=== PATIENT | male | born 1960 | race African-American/Black ===

== ENCOUNTER 2017-12-12 11:03 | Emergency (ER) | payer SELFPAY ==
[2017-12-12 11:44] LABS: #Basophils 0.1 thou/uL (0.0-0.2); #Eosinphils 0.2 thou/uL (0.0-0.7); #Lymphocytes 1.5 thou/uL (1.20-3.40); #Neutrophils 5.8 thou/uL (1.40-6.50); %Basophils 0.8 % (0.0-1.0); %Eosinophils 1.9 % (0.0-10.0); %Lymphocytes 17.8 % (21.0-51.0); %Monocytes 11.9 % (0.0-10.0); %Neutrophils 67.7 % (42.0-75.0); Hemoglobin 15.7 g/dL (14.0-18.0); Mean Corpuscular HGB CONC 32.3 g/dL (32.0-36.0); Mean Corpuscular Hemoglobin 33.1 pg (27.0-31.0); Mean Platelet Volume 8.9 fL (7.4-10.4); Platelet Count 95 thou/uL (130-400); RBC Distribution Width 13.3 % (11.5-14.5); Red Blood Cell (RBC) Count 4.73 mill/uL (4.70-6.10); White Blood Cell (WBC) Count 8.6 thou/uL (4.8-10.8)
[2017-12-12 12:08] LABS: ALT (SGPT) 87 U/L (8-55); AST (SGOT) 103 U/L (5-34); Albumin 3.4 g/dL (3.5-5.0); Alkaline Phosphatase 100 U/L (40-150); Anion Gap 11 mmol/L (10-20); BUN (Urea Nitrogen) 13 mg/dL (8.4-25.7); Bilirubin, Total 2.3 mg/dL (0.2-1.2); Calc. Creatinine Clearance 0 mL/min (70-130); Carbon Dioxide 25 mmol/L (22-29); Chloride 100 mmol/L (98-107); Estimated GFR-MDRD 52; Glucose 89 mg/dL (70-105); Potassium 3.4 mmol/L (3.5-5.1); Protein, Total 8.4 g/dL (6.0-8.3); Sodium 133 mmol/L (136-145)
[2017-12-12 16:04] LABS: Bilirubin Small (Negative); Blood, Urine Negative (Negative); Clarity CLOUDY (Clear); Glucose, Urine (Dipstick) 250 mg/dL (Negative); Leukocyte Small (Negative); Nitrite Negative (Negative); Protein, Urine (Dipstick) 30 mg/dL (Neg-Trace); Specific Gravity, Urine 1.019 (1.002-1.036)
[2017-12-12 16:07] LABS: Bacteria/HPF None Seen HPF (None Seen); RBC/HPF 0-3 HPF (0-3); Squamous Epithelial 0-3 HPF (0-3)
[2017-12-12 16:10] LABS: Pathc Cast-AUWi Flag 5.37 (0-2.49)
[2017-12-12 16:21] LABS: Crystals/HPF 1+ CA OXALATE HPF (Negative); Hyaline Casts/LPF NONE SEEN LPF (0-3 Hyaline); Manual Microscopic Reviewed? No Path Casts Seen; Renal Epithelial None Seen HPF (0-3); Transitional Epithelial NONE SEEN HPF (0-3)
== END 2017-12-12 15:21 | disposition home or self-care (01) ==
LOC: ERS 11:03
DX: T67.5XXA Heat exhaustion, unspecified, initial encounter (principal); N17.9 Acute kidney failure, unspecified; I10 Essential (primary) hypertension; F17.210 Nicotine dependence, cigarettes, uncomplicated
CPT/HCPCS: 36415; 80053; 81003; 81015; 82550; 85025; 93005; 96360

== ENCOUNTER 2018-02-17 05:25 | Inpatient (IN) | payer SELFPAY ==
[2018-02-17] MEDS ORDERED: Nitroglycerin 2% Ointment 1 INCH/1 GM Packet ONE (06:02)
[2018-02-17 06:20] LABS: #Eosinphils 0.3 thou/uL (0.0-0.7); #Lymphocytes 1.8 thou/uL (1.20-3.40); #Monocytes 0.6 thou/uL (0.11-0.59); %Basophils 0.1 % (0.0-1.0); %Eosinophils 4.6 % (0.0-10.0); %Lymphocytes 31.8 % (21.0-51.0); %Monocytes 10.2 % (0.0-10.0); %Neutrophils 53.2 % (42.0-75.0)
[2018-02-17 06:21] LABS: ALT (SGPT) 81 U/L (8-55); AST (SGOT) 85 U/L (5-34); Alkaline Phosphatase 85 U/L (40-150); Anion Gap 10 mmol/L (10-20); BUN (Urea Nitrogen) 16 mg/dL (8.4-25.7); Bilirubin, Total 1.9 mg/dL (0.2-1.2); CK (CPK) 302 U/L (30-200); Calc. Creatinine Clearance 0 mL/min (70-130); Calcium 8.6 mg/dL (7.8-10.44); Carbon Dioxide 25 mmol/L (22-29); Chloride 105 mmol/L (98-107); Estimated GFR-MDRD 79; Globulin 4.5 g/dL (2.4-3.5); Glucose 88 mg/dL (70-105); Hemoglobin 13.6 g/dL (14.0-18.0); Lipase 99 U/L (8-78); Mean Corpuscular HGB CONC 32.6 g/dL (32.0-36.0); Mean Corpuscular Hemoglobin 33.2 pg (27.0-31.0); Protein, Total 7.5 g/dL (6.0-8.3); RBC Distribution Width 13.3 % (11.5-14.5); Red Blood Cell (RBC) Count 4.11 mill/uL (4.70-6.10); Sodium 136 mmol/L (136-145); White Blood Cell (WBC) Count 5.6 thou/uL (4.8-10.8)
[2018-02-17 06:26] LABS: Troponin I Less than 0.010 ng/mL (< 0.028)
[2018-02-17 06:31] LABS: CKMB 10.1 ng/mL (0-6.6)
[2018-02-17 06:47] LABS: Mean Platelet Volume 9.3 fL (7.4-10.4); PLT Morphology Comment Appears Decreased; Platelet Count 77 thou/uL (130-400)
--- NOTE | 2018-02-17 07:46 | RAD ---
PORTABLE CHEST 1 VIEW: Date: 02/17/18 Time: 0525 hours HISTORY: Chest pain. FINDINGS: Comparison made with exam of 07/05/16. The heart size is normal. No focal areas of consolidation, pneumothoraces, or pleural effusions are s een. There are postop changes in the lower lumbar spine. IMPRESSION: No acute process. POS: [facility]
--- NOTE | 2018-02-17 08:12 | CT ---
PRELIMINARY REPORT/[facility]/EMERGENTY AFTER-HOURS PROCEDURE CT Angiography Abdomen With Intravenous Contrast EXAM DATE/TIME: 02/17/2018 6:18 AM CLINICAL HISTORY: 57 years old, male; Pain; Chest pain and chest pressure; Left-sided chest pain; Abdominal pain; Gener alized; Additional info: Maile5 presents to ed with C/O sharp left-sided chest pain and tightness onset 3 hours ago, along with r sided arm and leg tingling. PT reports recent lightheadedness while at work, as well as dizziness after getting up. PT reports SOB, n/v. TECHNIQUE: Axial computed tomographic angiography images of the abdomen with intravenous contrast material, incl uding non-contrast images if performed. MIP and/or 3D reconstructed images were created and reviewed. MIP reconstructed images were created and reviewed. CONTRAST: 80 ml of ISOVUE administered intravenously. COMPARISON: No relevant prior studies available. FINDINGS: Lungs: Unremarkable. No consolidation. VASCULATURE: Aorta: The aorta is normal. There is no evidence of aortic dissection, leak, rupture, or other compli cations. The vasculature demonstrates diffuse mild atherosclerotic calcification. Celiac Trunk and Mesenteric Arteries: There is atherosclerotic calcification at the origin of the anuja iac artery resulting in mild stenosis. SMA is patent. With mild atherosclerotic calcification of the origin. LIZETTE is patent. Renal Arteries: No occlusion or significant stenosis. ABDOMEN: Liver: There is a 1.3 cm hyperattenuation within the liver at the hepatic dome, nonspecific and possi miki represents a flash filling hemangioma. Gallbladder and bile ducts: Normal. No calcified stones. No ductal dilation. Pancreas: The pancreas appears normal. Spleen: The spleen is normal. Adrenals: Normal. No mass. Kidneys and ureters: Normal. No hydronephrosis. Stomach and bowel: The stomach is normal. The duodenum is unremarkable. Intraperitoneal space: Unremarkable. No free air. No significant fluid collection. Bones/joints: Unremarkable. No acute fracture. No dislocation. Soft tissues: Unremarkable. Lymph nodes: Unremarkable. No enlarged lymph nodes. IMPRESSION: There is no evidence of aortic dissection, leak, rupture, or other complications. Thank you for allowing us to participate in the care of your patient. Dictated and Authenticated by: Kris Combs MD 02/17/2018 7:05 AM Central Time ([place] & [place]) FINAL REPORT CT ARTERIOGRAM CHEST WITH IV CONTRAST AND 3D MIP IMAGING CT ARTERIOGRAM ABDOMEN WITH IV CONTRAST AND 3D MIP IMAGING: DATE: 02/17/18. TIME: Performed on an emergency basis at 0620 hours. HISTORY: Chest and abdomen pain radiating to back. FINDINGS: Agree with the preliminary report by Dr. Combs from [facility]. No CT evidence of aortic dis section or other acute vascular abnormalities. Small hiatal hernia and vascular anomaly of the liver dome are incidentally noted. POS: [facility]
--- NOTE | 2018-02-17 08:49 | ULT ---
RIGIHT UPPER QUADRANT ULTRASOUND: History: Abdominal pain. FINDINGS: There are multiple mobile gallstones without gallbladder wall thickening or pericholecystic fluid. Th e common duct measures 4 mm in diameter. The right kidney and pancreas are normal. No free fluid is s een in Cartagena's pouch. The liver is normal. IMPRESSION: Cholelithiasis. POS: [facility]
[2018-02-17 09:41] LABS: Troponin I Less than 0.010 ng/mL (< 0.028)
[2018-02-17 10:04] LABS: Acetaminophen Less than 6.0 mcg/mL (10.0-30.0); Alcohol Less than 10 mg/dL (Less than 10); Salicylate Less than 8.0 mg/dL (15.0-30.0)
[2018-02-17] MEDS ORDERED: ISOVUE-370 76%-LOCM 1 ML ONE (10:29)
[2018-02-17] MEDS ORDERED: Ondansetron HCl/PF 4 MG/2 ML Vial IVP PRN ×2 (10:52→12:07)
[2018-02-17] MEDS ORDERED: Ondansetron ODT 4 MG TAB SL PRN (10:52)
[2018-02-17 11:47] VITALS: BMI 28.1
[2018-02-17 11:57] LABS: INR-International Normal Ratio 1.2; PTT 30.4 SEC (22.9-36.1); Prothrombin Time 15.7 SEC (12.0-14.7)
[2018-02-17] MEDS ORDERED: Calcium Carbonate 500 MG ChewTAB PO PRN (12:07)
[2018-02-17] MEDS ORDERED: Ondansetron ODT 4 MG TAB PO PRN (12:07)
[2018-02-17] MEDS ORDERED: Senokot 8.6 MG TAB PO PRN (12:07)
[2018-02-17] MEDS ORDERED: Nitroglycerin 0.4 MG TAB (25 Tab Bottle) PO PRN (12:07)
[2018-02-17] MEDS ORDERED: cloNIDine 0.1 MG TAB PO PRN (12:12)
[2018-02-17 12:14] LABS: Troponin I 0.012 ng/mL (< 0.028)
--- NOTE | 2018-02-17 12:25 | HP ---
PRIMARY CARE PHYSICIAN: Vick stark. CHIEF COMPLAINT: Chest discomfort. HISTORY OF PRESENT ILLNESS: The patient is a 57-year-old male with polysubstance abuse who presented to the emergency room with chest discomfort. In 06/2014 the patient was admitted to this facility for chest discomfort. He had a negative stress test during that admission. A CT scan of the abdomen was negative. A urine drug screen was positive for cocaine. He was evaluated by GI as well as General Surgery at that time. Right upper quadrant ultrasound showed gallbladder distention and sludge in the gallbladder neck. Due to elevated alpha f etoprotein he underwent a CT liver protocol that was also negative for any tumor. He was advised to follow up with GI Clinic as outpatient. The patient woke up around 3:00 a.m. with substernal chest pain that was moderate in intensity, assoc iated with some nausea, shortness of breath and lightheadedness. He had one episode of vomiting the day before yesterday. He has been feeling generally weak and fatigued over the last 2-3 days. He baltazar s been working out in the sun lately. He denies any syncope, palpitations, diarrhea, or heartburn. No recent immobilization or travel reported. In the emergency room, his initial vital signs showed temperature 98.1, respirations 16, pulse rate o f 69 with a blood pressure of 134/70 with O2 saturation 98% on room air. His EKG showed sinus rhythm without significant ST-T wave changes. His troponin was negative; however, his CK-MB was 10.1 with a CK of 302. He received 1 inch nitropatch and 20 mg intramuscular Bentyl. His chest discomfort imp roved after nitroglycerin patch, his heart score in the emergency room was 3. PAST MEDICAL HISTORY: 1. Negative Cardiolite stress test in 2014. 2. Polysubstance abuse. 3. Hypertension, noncompliant with medications. 4. Tobacco dependence. 5. Degenerative disk disease. 6. Cholelithiasis. 7. Chronic hepatitis C. PAST SURGICAL HISTORY: Cervical diskectomy and fusion in 2000. ALLERGIES: No known drug allergies. CURRENT HOME MEDICATIONS: Reviewed with the patient and none. SOCIAL HISTORY: The patient currently lives at home with his family. 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 He con tinues to smoke up to half pack a day. He drinks alcohol socially. He denies any drug use. FAMILY HISTORY: Father at the age of 54 with heart disease. Heart disease also runs in his fam vipin. REVIEW OF SYSTEMS: The following complete review of systems was negative, unless otherwise mentioned in the HPI or below: Constitutional: Weight loss or gain, ability to conduct usual activities. Skin: Rash, itching. Eyes: Double vision, pain. ENT/Mouth: Nose bleeding, neck stiffness, pain, tenderness. Cardiovascular: Palpitations, dyspnea on exertion, orthopnea. Respiratory: Shortness of breath, wheezing, cough, hemoptysis, fever or night sweats. Gastrointestinal: Poor appetite, abdominal pain, heartburn, nausea, vomiting, constipation, or diarrhea. Genitourinary: Urgency, frequency, dysuria, nocturia. Musculoskeletal: Pain, swelling. Neurologic/Psychiatric: Anxiety, depression. Allergy/Immunologic: Skin rash, bleeding tendency. PHYSICAL EXAMINATION: VITAL SIGNS: As discussed above. GENERAL: A 57-year-old male in no apparent distress. Denies any chest discomfort at this time. HEENT: Head atraumatic, normocephalic. Sclerae are anicteric. Moist mucous membrane, no oral lesio n. NECK: Supple, no JVD appreciated. No carotid bruit. LUNGS: Clear to auscultation bilaterally, no wheezing, rales or rhonchi. HEART: S1, S2 present. Regular rate and rhythm. No murmur, rubs, or gallops appreciated. ABDOMEN: Soft, mild epigastric and right upper quadrant tenderness, no rebound, guarding, no costove rtebral angle tenderness. EXTREMITIES: No edema or calf tenderness. NEUROLOGIC: Grossly nonfocal, moves all 4 extremities. PSYCHIATRY: Alert, awake, oriented x3. SKIN: Warm and dry. LYMPH NODES: No palpable lymph nodes in the neck. PERIPHERAL VASCULAR: Radial pulses palpable bilaterally. MUSCULOSKELETAL: No joint swelling or tenderness. LABORATORY FINDINGS: Lipase was 99, total bilirubin 1.9 with AST 85, ALT 81, alkaline phosphatase 85 . BNP 168. CBC showed WBC 5.6 with hemoglobin 13.6, hematocrit 41.9, platelet of 77. PT, INR, PTT pending at this time. EKG by my review as discussed above. Right upper quadrant ultrasound showed cholelithiasis with comm on duct measuring 4 mm. The right kidney and pancreas appeared normal. CT dissection protocol was n egative. There was a 1.3 cm mass in the liver possibly consistent with hemangioma. The pancreas queenie eared normal. There was no evidence of aortic dissection and leak. IMPRESSION: 1. Chest discomfort in a 57-year-old male with polysubstance abuse. His urine drug screen is pendin g at this time. He was also found to have cholelithiasis. Cardiology and Gastroenterology input is pending at this time. He also has abnormal liver function tests. The patient will be started on a c lear liquid diet. He denies any nausea or vomiting at this time. A urine drug screen is pending at this time. We will add low dose aspirin and continue nitropatch. 2. Cholelithiasis. 3. Elevated CK. 4. Abnormal liver function tests, probably secondary to chronic hepatitis C. His HIV RNA in 2014 wa s [id number] IU per mL. 5. Degenerative joint disease. 6. Hypertension, noncompliant with medications. 7. Chronic kidney disease stage 2. 8. Chronic thrombocytopenia of unclear etiology. Plan of care was discussed with the patient in detail. He stated understanding.
[2018-02-17] MEDS: Sodium Chloride 0.9% 1,000 ML IV SCH ×2 (12:44→23:25)
--- NOTE | 2018-02-17 13:32 | CON ---
DATE OF CONSULTATION: 02/17/2018 REFERRING PHYSICIAN: Jim Palomino M.D. HISTORY OF PRESENT ILLNESS: Mr. Leiva is a 57-year-old -[place] man [facility]. The patient complained of recurrent epigastric and substernal chest pain which started approximately 0300 hours. His symptoms appeared suddenly associated with some carlos alberto sea. Pain was rated at 10/10, radiating to his right shoulder and arm. The patient denied any diaph oresis or dyspnea. He reports similar pain pattern over the last 2 months, usually exacerbated by ac tivity and not related to eating. The patient denies any other change in his bowel habits. Last bow el movement was yesterday and normal. He denies any unexplained weight loss. The patient was evalua jean marie in 2014 with similar complaints. At that time, his urinalysis was positive for cocaine abuse. T he patient had normal myocardial perfusion scan. Due to cost of this evaluation in the emergency dep artment, CT scan of the chest was obtained and excluded dissecting aneurysm. At the time of my evalu ation, the patient reports pain to be 4/10 and mostly substernal and epigastric abdominal region into a lesser extent of his right upper quadrant of the abdomen. PAST MEDICAL HISTORY: Pertinent for chronic hepatitis C, essential hypertension for which the patien t has been noncompliant with his medications. Other pertinent past medical history includes degenera tive arthritic disease involving his neck. PAST SURGICAL HISTORY: Pertinent for cervical diskectomy and fusion in 2000. SOCIAL HISTORY: Patient is and lives with a roommate. He admits to smoking 2-4 cigarettes per day and consumes moderate amount of ethanol occasionally. He drinks usually 2-3 beers twice week ly. He denies any other illicit drug abuse. FAMILY HISTORY: Significant for his father who from complications of heart disease in his 60s a nd a grandfather who also from complications of heart disease. The patient reports every male i n his extended family with essential hypertension. He denies any family history of cancer or diabete s mellitus. CURRENT MEDICATIONS: None. ALLERGIES: Patient denies any known drug allergies. REVIEW OF SYSTEMS: A 10-point review of systems essentially unremarkable except for as stated in pas t medical history and chief complaint. PHYSICAL EXAMINATION: GENERAL: This reveals a 57-year-old normally developed man who is otherwise coherent and interactive and appears stated age. The patient is alert and oriented x3. He appears to be in no acute distres s at the time of my evaluation. VITAL SIGNS: Includes blood pressure 144/91, pulse 69, respiratory rate 26, temperature is 98.4 degr ees Fahrenheit and oxygen saturation is 97% on room air. HEENT: Examination reveals normocephalic and atraumatic. Pupils are equal, round, reactive to light and accommodation. Extraocular muscles are intact bilaterally. He has no sclerae icterus present. Oral mucosa is pink and moist. No lesions are noted. NECK: Supple. No palpable lymphadenopathy or thyromegaly present. HEART: Reveals regular rate and rhythm, no murmurs or gallops auscultated. LUNGS: Clear to auscultation bilaterally. Breathing is regular and unlabored. ABDOMEN: Soft with epigastric tenderness to palpation. Liver is palpated 2 cm below the right diehl l margin. The spleen is nonpalpable below costal margin. EXTREMITIES: Reveals 2+ radial and pedal pulses bilaterally. No ankle edema is present. NEUROLOGIC: Examination reveals no focal deficits present. LABORATORY DATA: Pertinent laboratory findings today includes CBC with 5,600 white blood cells, hemo globin and hematocrit 13.6 and 41.9 respectively. Platelet count is 77,000. Metabolic profile; sodi um 136, potassium 4.0, chloride is 105, bicarbonate is 25, BUN 16, creatinine is 1.16, glucose 88, to arvin bilirubin is 1.9, AST and ALT elevated at 85 and 81 respectively. Alkaline phosphatase is normal at 85. IMAGING DATA: I have personally reviewed the abdominal ultrasound, which was obtained today revealin g multiple intraluminal gallstones. There is no gallbladder wall thickening or pericholecystic fluid present. The common bile duct is normal for this patient's age at 4 mm in diameter. IMPRESSION: 1. Epigastric abdominal and substernal chest pain, likely secondary to esophageal spasm versus gastr oesophageal reflux disease. 2. Cholelithiasis with no evidence of acute cholecystitis. Patient's symptomatology especially not associated with foods is unlikely to be a biliary colic. 3. Chronic hepatitis C with associated chronic thrombocytopenia. RECOMMENDATIONS: 1. Cardiology consultation to exclude cardiac etiology of this patient's symptomatology. 2. Once cardiac pathology has been excluded, we will give consideration to laparoscopic cholecystect rena given the likelihood of acute recurrent biliary colic. Above findings and recommendations were discussed with the patient, who indicates understanding of in formation given. Thank you again, Dr. Palomino for allowing me the opportunity to participate in the care of this patient.
[2018-02-17] MEDS: Nitroglycerin 2% Ointment 1 INCH/1 GM Packet TOP SCH ×2 (14:46→22:10)
--- NOTE | 2018-02-17 18:37 | CON ---
DATE OF CONSULTATION: 02/17/2018 REASON FOR CONSULTATION: Preoperative evaluation and chest pain. HISTORY OF PRESENT ILLNESS: Mr. Gray is a 57-year-old -[place] gentleman who comes to [facility] for chest pain. He describes chest pain on the upper left part of his chest that woke him up from sleep and lasted for a while. He decided to come in for evaluation and he was found to have gallstones and abnormal liver function test. Cardiology is being consulted for evaluation of a poss ible cardiac etiology of his symptoms. It is thought that if a cardiac etiology is ruled out, it may be recurrent biliary colic causing his symptoms and he may undergo laparoscopic cholecystectomy. Cu rrently, Mr. Gray is denying any chest pain. No abdominal pain. PAST MEDICAL HISTORY: 1. Chronic hepatitis C. 2. Hypertension. 3. Noncompliance. 4. Degenerative joint disease. PAST SURGICAL HISTORY: Cervical diskectomy and fusion in 2000. OUTPATIENT MEDICATIONS: None. ALLERGIES: No known drug allergies. FAMILY HISTORY: Father of heart disease in his 60s. Grandfather of heart disease as well. SOCIAL HISTORY: , lives with a roommate. Smokes 3-4 cigarettes a day and consumes a moderat e amount of alcohol occasionally, 2-3 beers twice a week. Positive cocaine use, as recent as 1 kelechi h ago. REVIEW OF SYSTEMS: A 12-point review of systems was done and is all negative unless stated in the hi story of present illness. PHYSICAL EXAMINATION: VITAL SIGNS: Temperature 97.3, pulse 56, respiratory rate 19, saturating 98% on room air, blood pres sure 130/76. GENERAL: Awake, alert, oriented x3, in no distress. HEENT: Normocephalic, atraumatic. NECK: Supple. LUNGS: Clear. CARDIOVASCULAR: S1, S2. No S3, S4. No murmur. ABDOMEN: Soft. Positive bowel sounds. EXTREMITIES: No edema. SKIN: Warm and dry. LABORATORY DATA: Laboratory work was reviewed. CBC with a white count of 5.6, hemoglobin of 13.6, h ematocrit of 41.9, platelet count of 77. Coags were unremarkable. Chemistries were unremarkable exc ept for a total bilirubin of 1.9. AST and ALT were high. Alkaline phosphatase was 85, normal. CK w as 302, CK-MB was high at 10.1. Troponin has been negative x3. BNP was 168. Albumin of 3. Lipase was 99, which is chronically high in the past. Toxicology only has salicylate, acetaminophen, and pl asma alcohol, which were all undetectable; however, still awaiting a urine drug screen. CT per dissection protocol shows no evidence of aortic dissection, leak, rupture or other complicatio ns. There is a small hiatal hernia and vascular anomaly of the liver dome, which is an incidental fi nding. Abdominal ultrasound shows gallstones, but no thickening wall or pericholecystic fluid. ASSESSMENT AND PLAN: Chest pain: Clearly different from his pain that would be caused by a possible gallstone issue. His LFTs do suggest this otherwise. We will get an echocardiogram and we will do a stress test to make sure that this is not a cardiac issue. He had similar presentation back in 201 5, at which point, he had a urine drug screen positive for cocaine. I asked him today if he done juan kay, and he tells me the last time he did this was about a month ago and he had pain about a week la ter; and then he got pain again yesterday. Further recommendation per results of echo and stress kate rojo. Thank you for letting us participate in the care of your patient. We will follow.
[2018-02-17] MEDS: Pantoprazole 40 MG VIAL IVP SCH (20:07)
[2018-02-17 20:38] LABS: Amphetamine Not Detected (NotDetected); Barbiturates Screen Not Detected (NotDetected); Benzodiazepine Screen Not Detected (NotDetected); Cocaine Metabolite Screen Detected (NotDetected); Medtox Control Line Valid? VALID (VALID); Medtox Reader # READER 1; Methadone Not Detected (NotDetected); Methamphetamine Not Detected (NotDetected); Opiate Screen Not Detected (NotDetected); Oxycodone Screen Not Detected (NotDetected); Phencyclidine (PCP) Not Detected (NotDetected); THC/Cannabinoid Screen Not Detected (NotDetected); Tricyclic Screen Not Detected (NotDetected)
[2018-02-17] MEDS: Docusate 100 MG CAP PO SCH (20:38)
[2018-02-17] MEDS ORDERED: Famotidine 20 MG TAB PO SCH (21:00)
[2018-02-17] MEDS ORDERED: Acetaminophen 325 MG TAB PO PRN (22:51)
[2018-02-18] MEDS: Nitroglycerin 2% Ointment 1 INCH/1 GM Packet TOP SCH ×3 (05:09→22:08)
[2018-02-18 05:37] LABS: Anion Gap 8 mmol/L (10-20); BUN (Urea Nitrogen) 12 mg/dL (8.4-25.7); Calc. Creatinine Clearance 78 mL/min (70-130); Calcium 8.1 mg/dL (7.8-10.44); Carbon Dioxide 26 mmol/L (22-29); Chloride 105 mmol/L (98-107); Estimated GFR-MDRD 71; Glucose 79 mg/dL (70-105); Lipase 54 U/L (8-78); Potassium 3.9 mmol/L (3.5-5.1); Sodium 135 mmol/L (136-145)
[2018-02-18 05:41] LABS: ALT (SGPT) 73 U/L (8-55); AST (SGOT) 73 U/L (5-34); Albumin 2.7 g/dL (3.5-5.0); Alkaline Phosphatase 75 U/L (40-150); Bilirubin, Direct 1.2 mg/dL (0.1-0.3); Protein, Total 6.5 g/dL (6.0-8.3)
[2018-02-18 05:51] LABS: #Eosinphils 0.2 thou/uL (0.0-0.7); #Lymphocytes 1.5 thou/uL (1.20-3.40); #Monocytes 0.6 thou/uL (0.11-0.59); #Neutrophils 2.6 thou/uL (1.40-6.50); %Basophils 0.6 % (0.0-1.0); %Eosinophils 4.7 % (0.0-10.0); %Lymphocytes 30.3 % (21.0-51.0); %Monocytes 11.9 % (0.0-10.0); %Neutrophils 52.4 % (42.0-75.0); Mean Corpuscular Hemoglobin 33.3 pg (27.0-31.0); Platelet Count 60 thou/uL (130-400); RBC Distribution Width 13.2 % (11.5-14.5); Red Blood Cell (RBC) Count 3.61 mill/uL (4.70-6.10)
[2018-02-18] MEDS: Pantoprazole 40 MG VIAL IVP SCH ×2 (09:15→19:40)
[2018-02-18] MEDS: Docusate 100 MG CAP PO SCH ×2 (09:15→19:46)
[2018-02-18] MEDS: Aspirin 81 mg Enteric Coated Tablet PO SCH (09:17)
[2018-02-18] MEDS ORDERED: ADENOSINE 60 MG/20 ML VIAL ONE (10:21)
[2018-02-18] MEDS ORDERED: Lidocaine 1% PF 5 ML VIAL ONE (13:48)
[2018-02-18] MEDS ORDERED: Ondansetron HCl/PF 4 MG/2 ML Vial ONE (13:48)
[2018-02-18] MEDS ORDERED: PROPOFOL 200 MG/20 ML VIAL ONE (13:48)
[2018-02-18] MEDS ORDERED: Glycopyrrolate 0.2 MG/ML 5 ML SYRINGE ONE (13:48)
--- NOTE | 2018-02-18 14:44 | NM ---
CARDIAC SPECT: HISTORY: A 57-year-old male with chest pain and hypertension. TECHNIQUE: A myocardial perfusion scan was performed using the single isotope one day protocol with technetium 9 9m sestamibi, and 10 millicuries was injected intravenously for the rest exam, followed by 30 millicu del for the stress study. Pharmacologic stress with adenosine was monitored and interpreted by Dr. Salinas. FINDINGS: Homogeneous tracer distribution is seen in the myocardial segments on stress and rest images without fixed or reversible defects. GATED SPECT LVEF: 57% WALL MOTION EXAM: Normal. IMPRESSION: Normal myocardial perfusion scan. POS: [facility]
[2018-02-18] MEDS ORDERED: Bupivacaine/Epinephrine 0.25% 30 ML VIAL ONE (15:50)
[2018-02-18] MEDS: Sodium Chloride 0.9% 1,000 ML IV SCH (16:16)
[2018-02-18] MEDS ORDERED: Fentanyl 250 MCG/5 ML VIAL ONE (16:24)
[2018-02-18] MEDS ORDERED: CEFAZOLIN/Water 2 GM/20 ML SYRINGE ONE (16:25)
--- NOTE | 2018-02-18 16:32 | PDOC.CTH ---
Cardiology Progress Note - Subjective No new issues. - Objective Vital Signs Temp Pulse Resp BP Pulse Ox 02/18/18 08:55 97.9 F 64 18 128/81 96 Weight 190 lb 1 oz 02/17/18 02/18/18 02/19/18 06:59 06:59 06:59 Intake Total 3363 Output Total 900 Balance 2463 - Physical Examination General/Neuro: alert & oriented x3, NAD Neck: no JVD present Lungs: CTA, unlabored respirations Heart: RRR Abdomen: NT/ND Extremities: + edema B (none) - Telemetry Telemetry Rhythm: NSR - Labs Result Diagrams: 02/18/18 04:41 02/18/18 04:41 Troponin/CKMB CK-MB (CK-2) 10.1 ng/mL (0-6.6) H* 02/17/18 05:44 Troponin I 0.012 ng/mL (< 0.028) 02/17/18 11:35 - Assessment/Plan 1, Chest pain 2. Gallstones 3. Substance abuse PLAN: - Likely pain from cocaine use. - Normal stress test and unremarkable echo. - May proceed with surgery as planned. - Counselled on cessation.
--- NOTE | 2018-02-18 17:27 | PRG ---
DATE OF SERVICE: 02/18/2018 GI FOLLOWUP NOTE SUBJECTIVE: Mr. Gray is resting comfortably in bed. He is no longer has any chest pain. He had a stress test that was normal. He had an echocardiogram that was reportedly normal. MEDICATIONS: Tylenol, Protonix, nitroglycerin, clonidine, Senokot, normal saline. OBJECTIVE: VITAL SIGNS: Temperature 97, pulse 64, blood pressure 128/81. LUNGS: Clear. ABDOMEN: Soft and nontender today. LABORATORY STUDIES: White count 5, hemoglobin 12, MCV 104, platelet count 60. INR 1.2. Chemistries notable for alpha fetoprotein of 6.5, AST and ALT are 73 and 73 with a bilirubin of 2. Lipase is 54 . Positive drug screen for cocaine. ASSESSMENT: 1. Hepatitis C, likely has cirrhosis and portal hypertension based on labs and low platelet count. This is compensated at this time. 2. Gallstones. I do not think this is probably the cause of his pain as his pain is resolved now an d typically his pain is not related to eating or activities. I suspect most likely this pain is rela jean marie to ischemic either bowel or cardiac related to cocaine use. There is very similar to his present ation last admission to this admission. RECOMMENDATIONS: Observation, PPI therapy, advance diet as tolerated. If cholecystectomy is to be c onsidered by General Surgery, be aware of the fact there is some risk for hepatic decompensation afte r this with portal hypertension which probably cirrhotic liver from hepatitis C. We would continue P PI therapy for ulcer. Gastritis prophylaxis as this patient is an active cocaine user.
[2018-02-18] MEDS ORDERED: Ondansetron HCl/PF 4 MG/2 ML Vial IVP PRN (18:07)
[2018-02-18] MEDS ORDERED: Promethazine HCl 25 MG/ML VIAL SLOW IVP PRN (18:07)
[2018-02-18] MEDS ORDERED: HYDROmorphone 2 MG/ML VIAL SLOW IVP PRN (18:07)
[2018-02-18] MEDS ORDERED: Promethazine HCl 25 MG/ML VIAL IM PRN (18:07)
--- NOTE | 2018-02-18 18:33 | OP ---
DATE OF OPERATION: 02/18/2018 PREOPERATIVE DIAGNOSES: 1. Acute cholecystitis with cholelithiasis. 2. Chronic hepatitis C. POSTOPERATIVE DIAGNOSES: 1. Acute cholecystitis with cholelithiasis. 2. Chronic hepatitis C. 3. Micronodular liver cirrhosis. PROCEDURES PERFORMED: Laparoscopic cholecystectomy. SURGEON: Vinicio Venegas D.O. ANESTHESIA: General endotracheal. ESTIMATED BLOOD LOSS: 25 mL FLUIDS GIVEN: 1300 mL crystalloids. SPONGE AND INSTRUMENT COUNT: Certified as correct x2. COMPLICATIONS: None apparent at the time of operation. INDICATIONS FOR PROCEDURE: This is a 57-year-old man who presented with recurrent epigastric to righ t upper quadrant abdominal pain. This was associated with severe substernal chest pain. Acute coron nato syndrome was excluded. Clinical and radiographic examination was consistent with acute cholecyst itis with cholelithiasis, for which patient was brought to the operating room for cholecystectomy. F indings are consistent with gallbladder in the usual anatomic location, partially encased by omental adhesions. Also noted micronodularity of the liver suggestive of liver cirrhosis. Photography was debora garcia. DESCRIPTION OF PROCEDURE: Informed consent obtained from the patient who was brought to the operatin g room and placed in supine position. Following general anesthesia, abdomen is sterilely prepped and draped in usual fashion. Skin below the umbilicus was infiltrated with 0.25% Marcaine with epinephr ine. A small curvilinear infraumbilical incision is made using an 11 scalpel. Umbilical stalk was g rasped with Griffin's and elevated. Veress needle was then inserted through the incision and placed i n the peritoneal cavity through which the abdomen was insufflated with 3 liters of CO2 gas. Intraabd ominal pressure noted at 2 mmHg. Following abdominal insufflation, Veress needle was removed and a 5 mm trocar was introduced using the Visiport under laparoscopy. Laparoscopy confirmed proper placeme nt of the port, no injuries to underlying structures. Additional laparoscopy reveals gallbladder in the usual anatomic location partially encased by omental adhesions. Under direct laparoscopy, a 12 m m epigastric and two 5 mm right lateral subcostal ports were placed after the overlying skin were inf iltrated with 0.25% Marcaine with epinephrine and appropriate incisions made. The patient was placed in a reverse Trendelenburg position, rotated to his left. [place] dissector with cautery was intro duced through the epigastric port site using this to take down omental adhesions with good hemostasis . Prestige grasper introduced through the right lateral subcostal port grasping the fundus of the ga llbladder which was elevated. A second Prestige grasper was introduced through the right medial subc ostal port grasping the Valentine's pouch which was retracted laterally. cystic artery was disse cted free from surrounding structures and divided between clips, applying two clips proximally and on e clip at the junction of the cystic artery and gallbladder. The cystic duct was also carefully diss ected free from surrounding structures and divided between clips in a similar fashion. The intrahepa tic gallbladder was then removed from the liver bed using cautery in piecemeal. Gallbladder is deliv ered of the abdominal cavity using an EndoCatch. Operative site was copiously irrigated clear with s breezy. All clips remain in place. The gallbladder fossa was oozing of venous blood. Immediate hemo stasis was achieved using Arixtra. Finding no other pathology, laparoscopy was terminated. Fascia o f the epigastric port was closed using 0 Vicryl suture and Endo closure device under laparoscopy. Ab domen was desufflated. All ports and instruments removed and accounted for. Skin incisions were ameya sed using 4-0 Monocryl suture in subcuticular fashion. Dermabond was applied over incisional closure . The patient tolerated the operation without any apparent complication and was returned to recovery room in a satisfactory condition.
[2018-02-18] MEDS ORDERED: traMADol HCl 50 MG TAB PO PRN (18:44)
[2018-02-18] MEDS ORDERED: HYDROmorphone 2 MG/ML VIAL ONE (18:51)
[2018-02-18] MEDS: traMADol HCl 50 MG TAB PO PRN (19:44)
--- NOTE | 2018-02-18 22:48 | PDOC.PN ---
- Subjective Encounter Start Date: 02/18/18 Encounter Start Time: 10:30 Patient seen and examined for CP. No new complaints. Denies any new CP. No fever /chills/N/V. No overnight events - Objective Resuscitation Status: Resuscitation Status FULL:Full Resuscitation MAR Reviewed: Yes Vital Signs & Weight: Vital Signs (12 hours) Temp Pulse Resp BP Pulse Ox 02/18/18 21:45 100 02/18/18 19:27 97.5 F L 78 18 144/71 H 100 Weight Weight 190 lb 1 oz I&O: 02/17/18 02/18/18 02/19/18 06:59 06:59 06:59 Intake Total 3363 Output Total 900 1200 Balance 2463 -1200 Result Diagrams: 02/19/18 05:31 02/19/18 05:31 EKG Reviewed by me: Yes (Tele SR) Phys Exam - Physical Examination Constitutional: NAD Neck: no JVD, supple Respiratory: no wheezing, no rales, no rhonchi, clear to auscultation bilateral Cardiovascular: RRR, no rub no heaves/pulsations Gastrointestinal: soft, non-tender, no distention, positive bowel sounds Musculoskeletal: no edema Neurological: non-focal, moves all 4 limbs Psychiatric: normal affect, A&O x 3 Dx/Plan - Plan DVT proph w/SCDs IMPRESSION: 1. Chest pain. 2. Cholelithiasis. 3. Elevated CK. 4. Abnormal liver function tests, probably secondary to chronic hepatitis C. 5. Degenerative joint disease. 6. Hypertension, noncompliant with medications. 7. Chronic kidney disease stage 2. 8. Chronic thrombocytopenia prob due to underlying cirrhosis. 9 Cocaine abuse PLAN: Stress test today Echo reviewed Possible Lap Lyndsey today Cont PPI Counselled to quit Cocaine Cont current meds as below Review of Systems - Review of Systems Cardiovascular: negative: chest pain, palpitations, orthopnea, paroxysmal nocturnal dyspnea, edema, light headedness, other Gastrointestinal: negative: Nausea, Vomiting, Abdominal Pain, Diarrhea, Constipation, Melena, Hematochezia, Other - Medications/Allergies Allergies/Adverse Reactions: Allergies Allergy/AdvReac Type Severity Reaction Status Date / Time Fish Containing Products Allergy Verified 07/15/14 01:36 No Known Drug Allergies Allergy Verified 07/15/14 01:16 Medications: Current Medications Aspirin (Ecotrin) 81 mg PO DAILY [facility] Last Admin: 02/18/18 09:17 Dose: Not Given Calcium Carbonate (Tums) 1,000 mg PO Q4H PRN PRN Reason: Heartburn or Indigestion Clonidine (Catapres) 0.1 mg PO Q4H PRN PRN Reason: Systolic BP > 180 Docusate Sodium (Colace) 100 mg PO BID [facility] Last Admin: 02/18/18 19:46 Dose: Not Given Sodium Chloride (Normal Saline 0.9%) 1,000 mls @ 75 mls/hr IV .[id number] [facility] Stop: 02/19/18 12:16 Last Admin: 02/18/18 16:16 Dose: Not Given Ketorolac Tromethamine (Toradol) 15 mg IVP Q6HR [facility] Stop: 02/23/18 23:59 Nitroglycerin (Nitro-Bid 2% Ointment) 0.5 inch TOP Q8HR [facility] Last Admin: 02/18/18 22:08 Dose: Not Given Nitroglycerin (Nitrostat) 0.4 mg PO Q5MIN PRN PRN Reason: Chest Pain Ondansetron HCl (Zofran Odt) 4 mg PO Q6H PRN PRN Reason: Nausea/Vomiting Ondansetron HCl (Zofran) 4 mg IVP Q6H PRN PRN Reason: Nausea/Vomiting Pantoprazole Sodium (Protonix) 40 mg IVP Q12HR [facility] Last Admin: 02/18/18 19:40 Dose: 40 mg Senna (Senokot) 2 tab PO HSPRN PRN PRN Reason: Constipation Tramadol HCl (Ultram) 50 mg PO Q6H PRN PRN Reason: Moderate Pain (4-6) Tramadol HCl (Ultram) 100 mg PO Q6H PRN PRN Reason: Severe Pain (7-10) Last Admin: 02/18/18 19:44 Dose: 100 mg
[2018-02-18] MEDS: Ketorolac Tromethamine 30 MG/ML VIAL IVP SCH (23:11)
[2018-02-19] MEDS: Sodium Chloride 0.9% 1,000 ML IV SCH (01:05)
[2018-02-19] MEDS: traMADol HCl 50 MG TAB PO PRN ×4 (01:42→20:31)
[2018-02-19] MEDS: Ketorolac Tromethamine 30 MG/ML VIAL IVP SCH ×3 (05:20→18:03)
[2018-02-19] MEDS: Nitroglycerin 2% Ointment 1 INCH/1 GM Packet TOP SCH (05:21)
[2018-02-19 05:55] LABS: #Eosinphils 0.3 thou/uL (0.0-0.7); #Lymphocytes 1.1 thou/uL (1.20-3.40); #Monocytes 0.6 thou/uL (0.11-0.59); #Neutrophils 5.2 thou/uL (1.40-6.50); %Basophils 0.5 % (0.0-1.0); %Eosinophils 3.9 % (0.0-10.0); %Lymphocytes 15.3 % (21.0-51.0); %Monocytes 8.8 % (0.0-10.0); %Neutrophils 71.5 % (42.0-75.0); Hemoglobin 12.3 g/dL (14.0-18.0); Mean Corpuscular HGB CONC 32.4 g/dL (32.0-36.0); Mean Corpuscular Hemoglobin 33.5 pg (27.0-31.0); Mean Platelet Volume 8.7 fL (7.4-10.4); Platelet Count 65 thou/uL (130-400); Red Blood Cell (RBC) Count 3.66 mill/uL (4.70-6.10); White Blood Cell (WBC) Count 7.3 thou/uL (4.8-10.8)
[2018-02-19 06:15] LABS: ALT (SGPT) 71 U/L (8-55); AST (SGOT) 77 U/L (5-34); Albumin 2.7 g/dL (3.5-5.0); Alkaline Phosphatase 78 U/L (40-150); Anion Gap 8 mmol/L (10-20); BUN (Urea Nitrogen) 11 mg/dL (8.4-25.7); Bilirubin, Direct 0.9 mg/dL (0.1-0.3); Bilirubin, Total 1.5 mg/dL (0.2-1.2); Calc. Creatinine Clearance 93 mL/min (70-130); Calcium 8.2 mg/dL (7.8-10.44); Carbon Dioxide 23 mmol/L (22-29); Chloride 106 mmol/L (98-107); Estimated GFR-MDRD 84; Glucose 116 mg/dL (70-105); Potassium 3.9 mmol/L (3.5-5.1); Protein, Total 6.7 g/dL (6.0-8.3); Sodium 133 mmol/L (136-145)
[2018-02-19] MEDS: Docusate 100 MG CAP PO SCH (08:46)
[2018-02-19] MEDS: Pantoprazole 40 MG VIAL IVP SCH (08:46)
[2018-02-19] MEDS: Aspirin 81 mg Enteric Coated Tablet PO SCH (08:46)
--- NOTE | 2018-02-19 11:55 | PDOC.PN ---
- Subjective Encounter Start Date: 02/19/18 Encounter Start Time: 10:45 Patient seen and examined for CP. No new complaints. Tolerating PO. Some pain over the surgical site - improving. No overnight events - Objective Resuscitation Status: Resuscitation Status FULL:Full Resuscitation MAR Reviewed: Yes Vital Signs & Weight: Vital Signs (12 hours) Temp Pulse Resp BP Pulse Ox 02/19/18 08:25 95 02/19/18 07:30 98.6 F 71 18 143/80 H 95 02/19/18 06:10 98 02/19/18 04:34 98.2 F 73 18 151/89 H 96 02/19/18 00:28 97.8 F 83 18 159/86 H 99 Weight Weight 190 lb 1 oz I&O: 02/18/18 02/19/18 02/20/18 06:59 06:59 06:59 Intake Total 3363 1500 Output Total 900 2050 Balance 2463 -550 Result Diagrams: 02/19/18 05:31 02/19/18 05:31 Phys Exam - Physical Examination Constitutional: NAD Respiratory: no wheezing, no rhonchi Cardiovascular: RRR, no rub Gastrointestinal: soft, positive bowel sounds Musculoskeletal: no edema Neurological: moves all 4 limbs Dx/Plan - Plan DVT proph w/SCDs IMPRESSION: 1. Chest pain. ACS ruled out. Stress test neg 2. Symptomatic cholelithiasis s/p Lap Lyndsey 02/18 3. Elevated CK. 4. Abnormal liver function tests, probably secondary to chronic hepatitis C. 5. Degenerative joint disease. 6. Hypertension, noncompliant with medications. 7. Chronic kidney disease stage 2. 8. Chronic thrombocytopenia prob due to underlying cirrhosis. 9 Cocaine abuse. 10. Urinary retention. PLAN: Cont current meds as below Cont PPI - change to PO Ambulate Counselled to quit Cocaine DC NTG patch Add Amlodipine Cont Clonidine PRN DC IVF if tolerating PO Review of Systems - Review of Systems Respiratory: negative: Cough, Dry, Shortness of Breath, Hemoptysis, SOB with Excertion, Pleuritic Pain, Sputum, Wheezing Cardiovascular: negative: chest pain, palpitations, orthopnea, paroxysmal nocturnal dyspnea, edema, light headedness, other - Medications/Allergies Allergies/Adverse Reactions: Allergies Allergy/AdvReac Type Severity Reaction Status Date / Time Fish Containing Products Allergy Verified 07/15/14 01:36 No Known Drug Allergies Allergy Verified 07/15/14 01:16 Medications: Current Medications Aspirin (Ecotrin) 81 mg PO DAILY [facility] Last Admin: 02/19/18 08:46 Dose: 81 mg Calcium Carbonate (Tums) 1,000 mg PO Q4H PRN PRN Reason: Heartburn or Indigestion Clonidine (Catapres) 0.1 mg PO Q4H PRN PRN Reason: Systolic BP > 180 Docusate Sodium (Colace) 100 mg PO BID [facility] Last Admin: 02/19/18 08:46 Dose: 100 mg Sodium Chloride (Normal Saline 0.9%) 1,000 mls @ 75 mls/hr IV .[id number] [facility] Stop: 02/19/18 12:16 Last Admin: 02/19/18 01:05 Dose: 1,000 mls Ketorolac Tromethamine (Toradol) 15 mg IVP Q6HR [facility] Stop: 02/23/18 23:59 Last Admin: 02/19/18 11:38 Dose: 15 mg Nitroglycerin (Nitro-Bid 2% Ointment) 0.5 inch TOP Q8HR [facility] Last Admin: 02/19/18 05:21 Dose: 0.5 inch Nitroglycerin (Nitrostat) 0.4 mg PO Q5MIN PRN PRN Reason: Chest Pain Ondansetron HCl (Zofran Odt) 4 mg PO Q6H PRN PRN Reason: Nausea/Vomiting Ondansetron HCl (Zofran) 4 mg IVP Q6H PRN PRN Reason: Nausea/Vomiting Pantoprazole Sodium (Protonix) 40 mg IVP Q12HR [facility] Last Admin: 02/19/18 08:46 Dose: 40 mg Senna (Senokot) 2 tab PO HSPRN PRN PRN Reason: Constipation Tramadol HCl (Ultram) 50 mg PO Q6H PRN PRN Reason: Moderate Pain (4-6) Tramadol HCl (Ultram) 100 mg PO Q6H PRN PRN Reason: Severe Pain (7-10) Last Admin: 02/19/18 08:45 Dose: 100 mg
[2018-02-19] MEDS ORDERED: Amlodipine 5 MG TAB PO SCH (12:00)
--- NOTE | 2018-02-19 16:31 | PRG ---
DATE OF SERVICE: 02/19/2018 SUBJECTIVE: The patient is postop day 1 status post laparoscopic cholecystectomy. The patient under went this procedure yesterday without difficulty. Overnight, he has not had any issues and he report s his pain is controlled and he is tolerating a diet. PHYSICAL EXAMINATION: VITAL SIGNS: Temperature is 98.6, heart rate is 71, blood pressure 143/80, respirations 18, oxygen s aturation 95% on room air. GENERAL: The patient is resting comfortably in bed. He is awake, alert and oriented x3. LUNGS: Clear to auscultation bilaterally. HEART: Regular rate and rhythm. ABDOMEN: Soft, flat, nontender. Port sites are clean, dry and intact. LABORATORY DATA: White blood cell count 7.3, hemoglobin 12.3, hematocrit 37.8, platelets 65,000. So dium 133, potassium 3.9, chloride 106, CO2 23, BUN 11, creatinine 1.10, glucose 116, total bilirubin down to 1.5, direct bilirubin down to 0.9, AST 77, ALT 71, alkaline phosphatase 78. There are no rad iographs to review this morning. ASSESSMENT: 1. Status post laparoscopic cholecystectomy. 2. Chronic hepatitis C. 3. Nodular liver cirrhosis. PLAN: Will be to continue supportive care. The patient will also have a GI consult and continued me dical management by the primary team.
[2018-02-19] MEDS: Amlodipine 5 MG TAB PO SCH (20:21)
[2018-02-19] MEDS: Senokot S 8.6-50 MG TAB PO SCH (20:21)
[2018-02-19] MEDS: Tamsulosin HCl 0.4 MG CAP PO SCH (20:21)
--- NOTE | 2018-02-19 20:51 | PRG ---
DATE OF SERVICE: 02/19/2018 SUBJECTIVE: The patient notes he has been up and out of bed. He has a little bit of upper abdominal pain similar to before his surgery, which is really unchanged. He is eating. He has no nausea or v omiting. He has no fever. MEDICATIONS: Amlodipine, Toradol, nitroglycerin, Zofran, Protonix, Senokot, Ultram. PHYSICAL EXAMINATION: VITAL SIGNS: Temperature is 97, pulse 86, blood pressure 155/89. GENERAL: He is alert and oriented. ABDOMEN: Nontender. LABORATORY STUDIES: White count 7.3, hemoglobin is 12.3, platelet count is 65,000. Sodium 133, pota ssium 3.9, BUN and creatinine are 11 and 1.1, bilirubin 1.5, AST and ALT are 77 and 71, alkaline phos phatase 78, AFP in 2014. ASSESSMENT: 1. Status post cholecystectomy. 2. Recurrent bouts of vague abdominal pain, possibly the gallbladder, possibly related to recurrent positive drug screens for cocaine. 3. Cirrhosis secondary to hepatitis C. 4. Ongoing hepatitis C infection. RECOMMENDATIONS: After the patient recovers from surgery, we would be happy to see him in the office as we offered to him in the past, to follow up for hepatitis C treatment. We will give him office andrew garcia and I would be happy to see him back in a few weeks after his surgery if you would like to purs ue therapy.
[2018-02-20] MEDS: Ketorolac Tromethamine 30 MG/ML VIAL IVP SCH ×5 (00:06→23:27)
[2018-02-20] MEDS: traMADol HCl 50 MG TAB PO PRN ×2 (05:18→17:15)
--- NOTE | 2018-02-20 07:14 | CON ---
DATE OF CONSULTATION: 02/17/2018 REASON FOR CONSULTATION: Abdominal pain, chest pain. HISTORY OF PRESENT ILLNESS: Mr. Gray is a 57-year-old gentleman who came to the emergency room l ast night about 3:00 in the morning for which he reports there is very sharp pain in the epigastrium and chest. This has been going on for about 2-3 months. He states that typically the pain is like c hest tightness like someone sitting on his chest. At this time, it was sharp in the left chest and l eft upper abdomen. He reports he had to leave work on this past Tuesday because he was lightheaded and dizzy when he got up. He has some shortness of breath and some nausea and vomiting when he came in last night, but denies either of these now. Right now, he states his whole upper belly just is u ncomfortable, feels tight. He denies any relationship of the symptoms to working or activity. He de nies relation of symptoms to eating. He notes no relations to lying flat. He says he thought maybe it was indigestion in the past few months, but really had not taken any over the counter medicines fo r it. He denies any nausea or vomiting, although the ER notes that he has had associated vomiting wi th . REVIEW OF SYSTEMS: Pertinent review of systems negative for weight loss, dysphagia, odynophagia, melo natanael, hematochezia or hematemesis, fever or chills. Denies any radiation of pain to the back. In the past, the patient was here with similar symptoms about a year ago and positive drug screen for cocaine. He states he does not do cocaine or any drugs at this time. He does drink alcohol about 6 beers a week. He states he last drank on of last week. On presentation to the emergency r oom, he had stable vital signs and benign exam. He was given some Benadryl and some Nitro-Bid ointme nt and some aspirin. Negative CT scan of the chest, abdomen, and pelvis, showed some gallstones, nor mal bile duct. LABORATORY AND X-RAY FINDINGS: His labs are notable for a white count of 5.6, hemoglobin 13.6 and a platelet count of 77,000. INR is 1.2. His bilirubin is 1.9 with AST and ALT of 85 and 81, alkaline phosphatase of 85, creatine kinase of 302, CK-MB of 10. Troponins are less than 0.01. Protein 7.5, albumin 3, lipase was 99. Previous labs are notable for although AFP of 52 last year. Presently, the patient in no overt distress. He is lying in bed, has got no IV fluids going or new m edications going that I can tell PAST MEDICAL HISTORY: Hypertension; tobacco abuse; drug use in the past, he denies this now; history of cervical disk disease, history of hepatitis C. PAST SURGICAL HISTORY: Several diskectomy in 2000, bilateral knee surgery. MEDICATIONS: None at home. ALLERGIES: FISH, but not SHELLFISH. FAMILY HISTORY: Heart disease. 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 Smokes half a pack a day. Drinks about 6 beers per day. He state s he is not using drugs now. REVIEW OF SYSTEMS: As per HPI, otherwise negative for shortness of breath, fever or chills. PRESENT MEDICATIONS: Ecotrin, Tums, Catapres, Colace, Pepcid, Nitrostat, Zofran, Senna, normal salin e at 75 an hour. IMAGING: CT dissection protocol of abdomen, 1.3 cm hypertonic liver lesion in the dome, atherosclero tic vessel disease in the celiac, otherwise normal CT. Chest x-ray was normal. Ultrasound, cholelit hiasis. Hepatitis C antibody positive last in 2014 with hepatitis C RNA positive at that time as wel l. On 02/17/2018, plasma alcohol was negative. Acetaminophen negative. Salicylates negative. Urin e drug screen was not done. Urine showed small bilirubin and leukocytes. ASSESSMENT: 1. Atypical chest pain, and epigastric pain ongoing for several months, worse in the past couple of days. CAT scan shows no acute abnormalities. Ultrasound showed some gallstones. His pain is not ty pical of biliary colic and it is all over the chest did not really , last night it woke him up f rom sleep. He has got some laboratory findings of elevated CK and CK-MB, one wonders about a rhabdom yolysis. I am very concerned about ongoing drug use. Differential diagnoses include mild ischemia r elated to drug use, reflux, dehydration, and last on my list would be atypical biliary colic. 2. Hepatitis C. His abnormal liver function tests have been present since 2014. He does have a sma ll lesion in his liver, which is flash filling. We will ask Radiology if this was present on his pre vious CAT scan in 2015. We would repeat his alpha fetoprotein as well with regard to this lesion. In itially we would go ahead and put him on a PPI instead of an H2 radha. We will await for Cardiac a nd Surgery evaluation.
[2018-02-20 07:32] LABS: ALT (SGPT) 75 U/L (8-55); AST (SGOT) 86 U/L (5-34); Albumin 2.8 g/dL (3.5-5.0); Alkaline Phosphatase 85 U/L (40-150); Anion Gap 8 mmol/L (10-20); BUN (Urea Nitrogen) 14 mg/dL (8.4-25.7); Bilirubin, Direct 0.7 mg/dL (0.1-0.3); Calc. Creatinine Clearance 87 mL/min (70-130); Carbon Dioxide 25 mmol/L (22-29); Chloride 104 mmol/L (98-107); Estimated GFR-MDRD 78; Glucose 97 mg/dL (70-105); Potassium 3.9 mmol/L (3.5-5.1); Sodium 133 mmol/L (136-145)
[2018-02-20] MEDS: Amlodipine 5 MG TAB PO SCH ×2 (08:25→20:00)
[2018-02-20] MEDS: Aspirin 81 mg Enteric Coated Tablet PO SCH (08:25)
[2018-02-20] MEDS: Senokot S 8.6-50 MG TAB PO SCH ×2 (08:25→19:59)
--- NOTE | 2018-02-20 15:58 | PDOC.PN ---
- Subjective Encounter Start Date: 02/20/18 Encounter Start Time: 10:15 Patient seen and examined for CP. Some abd pain over the surgical site. No N/V. No new complaints. No overnight events - Objective Resuscitation Status: Resuscitation Status FULL:Full Resuscitation MAR Reviewed: Yes Vital Signs & Weight: Vital Signs (12 hours) Temp Pulse Resp BP Pulse Ox 02/20/18 15:26 98.0 F 72 16 157/95 H 98 02/20/18 11:52 98.1 F 69 16 159/91 H 97 02/20/18 08:00 97.7 F 74 16 132/85 96 02/20/18 04:00 98.2 F 70 20 162/87 H 97 Weight Weight 190 lb 1 oz I&O: 02/19/18 02/20/18 02/21/18 06:59 06:59 06:59 Intake Total 1500 2580 Output Total 2050 1015 Balance -550 1565 Result Diagrams: 02/19/18 05:31 02/20/18 06:51 Phys Exam - Physical Examination Constitutional: NAD Respiratory: no wheezing, no rhonchi Cardiovascular: RRR, no rub Gastrointestinal: soft, positive bowel sounds Musculoskeletal: no edema Neurological: moves all 4 limbs Dx/Plan - Plan DVT proph w/SCDs IMPRESSION: 1. Chest pain. ACS ruled out. Stress test neg 2. Symptomatic cholelithiasis s/p Lap Lyndsey 02/18 3. Elevated CK. 4. Abnormal liver function tests, probably secondary to chronic hepatitis C. 5. Degenerative joint disease. 6. Hypertension, noncompliant with medications. 7. Chronic kidney disease stage 2. 8. Chronic thrombocytopenia prob due to underlying cirrhosis. 9 Cocaine abuse - Counselled 10. Urinary retention. PLAN: Cont current meds as below Cont PPI Cont Amlodipine Ambulate GI signed off DC home in AM if stable Cont Clonidine PRN DC ASA Laboratory Tests 02/18/18 02/19/18 02/20/18 04:41 05:31 06:51 Total Bilirubin 2.0 H 1.5 H 1.0 Review of Systems - Review of Systems Respiratory: negative: Cough, Dry, Shortness of Breath, Hemoptysis, SOB with Excertion, Pleuritic Pain, Sputum, Wheezing Cardiovascular: negative: chest pain, palpitations, orthopnea, paroxysmal nocturnal dyspnea, edema, light headedness, other - Medications/Allergies Allergies/Adverse Reactions: Allergies Allergy/AdvReac Type Severity Reaction Status Date / Time Fish Containing Products Allergy Verified 07/15/14 01:36 No Known Drug Allergies Allergy Verified 07/15/14 01:16 Medications: Current Medications Amlodipine Besylate (Norvasc) 5 mg PO BID [facility] Last Admin: 02/20/18 08:25 Dose: 5 mg Aspirin (Ecotrin) 81 mg PO DAILY [facility] Last Admin: 02/20/18 08:25 Dose: 81 mg Calcium Carbonate (Tums) 1,000 mg PO Q4H PRN PRN Reason: Heartburn or Indigestion Clonidine (Catapres) 0.1 mg PO Q4H PRN PRN Reason: Systolic BP > 180 Last Admin: 02/19/18 16:03 Dose: 0.1 mg Ketorolac Tromethamine (Toradol) 15 mg IVP Q6HR [facility] Stop: 02/23/18 23:59 Last Admin: 02/20/18 12:15 Dose: 15 mg Nitroglycerin (Nitrostat) 0.4 mg PO Q5MIN PRN PRN Reason: Chest Pain Ondansetron HCl (Zofran Odt) 4 mg PO Q6H PRN PRN Reason: Nausea/Vomiting Ondansetron HCl (Zofran) 4 mg IVP Q6H PRN PRN Reason: Nausea/Vomiting Pantoprazole Sodium (Protonix) 40 mg PO DAILY [facility] Last Admin: 02/20/18 08:25 Dose: 40 mg Senna (Senokot) 2 tab PO HSPRN PRN PRN Reason: Constipation Senna/Docusate Sodium (Senokot S) 2 tab PO BID [facility] Last Admin: 02/20/18 08:25 Dose: 2 tab Tamsulosin HCl (Flomax) 0.4 mg PO HS [facility] Last Admin: 02/19/18 20:21 Dose: 0.4 mg Tramadol HCl (Ultram) 50 mg PO Q6H PRN PRN Reason: Moderate Pain (4-6) Tramadol HCl (Ultram) 100 mg PO Q6H PRN PRN Reason: Severe Pain (7-10) Last Admin: 02/20/18 05:18 Dose: 100 mg
[2018-02-20] MEDS: Tamsulosin HCl 0.4 MG CAP PO SCH (19:59)
--- NOTE | 2018-02-20 20:40 | PRG ---
DATE OF SERVICE: 02/20/2018 SUBJECTIVE: Abbie Gray is doing well today. He is tolerating his diet. He is having some d iscomfort postoperatively as expected. OBJECTIVE: LUNGS: Clear to auscultation. CARDIAC: Regular rate and rhythm without murmur or gallop. ABDOMEN: Soft, nontender, good bowel sounds. Surgical wounds, laparoscopic, look good. He has pass ed flatus. LABORATORY DATA: His bilirubin is down to normal. ASSESSMENT AND PLAN: 1. Cirrhosis. 2. Status post laparoscopic cholecystectomy. The patient can be discharged home anytime from a surgical standpoint. Follow up [facility] in 2 weeks.
[2018-02-21] MEDS: Ketorolac Tromethamine 30 MG/ML VIAL IVP SCH ×2 (05:21→11:25)
[2018-02-21] MEDS: Senokot S 8.6-50 MG TAB PO SCH (07:53)
[2018-02-21] MEDS: Amlodipine 5 MG TAB PO SCH (07:54)
[2018-02-21 07:55] VITALS: BP 131/86
[2018-02-21 08:49] VITALS: TEMP 98.7
[2018-02-21] MEDS ORDERED: Milk Of Magnesia 30 ML UDCUP PO SCH (11:15)
[2018-02-21] MEDS ORDERED: Polyethylene Glycol 3350 17 GM Packet PO SCH (11:15)
--- NOTE | 2018-02-21 11:25 | DIS ---
DATE OF ADMISSION: 02/17/2018 DATE OF DISCHARGE: 02/21/2018 DISCHARGE DISPOSITION: Home. FOLLOWUP: 1. Follow up with primary care physician at [facility] in 1 week. 2. Follow up with General Surgery, Dr. Venegas as scheduled. DISCHARGE MEDICATIONS: Amlodipine 5 mg b.i.d., Colace 100 mg twice a day, Protonix 40 mg daily, tram adol as needed. The patient was seen and examined on the day of discharge, denies any new complaints, no chest pain, shortness of breath, palpitations reported. BRIEF HOSPITAL COURSE: Patient is a 57-year-old male with polysubstance abuse, hypertension, tobacco dependence, cholelithiasis, and medication noncompliance who presented to the emergency room with ch est discomfort. Please refer to the history and physical for further details. The patient was admitted to the hospital with a diagnosis of chest discomfort, rule out acute coronar y syndrome. Urine drug screen was positive for cocaine. He was found to have abnormal LFTs. Right upper quadrant ultrasound in the emergency room showed cholelithiasis without pericholecystic fluid o r gallbladder wall thickening. The patient was seen by General Surgery in the emergency room. He wa s also evaluated by Cardiology and Gastroenterology after admission. He underwent a laparoscopic cho lecystectomy on 02/18/2018. He tolerated the procedure well. Prior to surgery, he was cleared by Ca rdiology with a negative stress test. His echocardiogram showed left ventricular ejection fraction o f 60%-65% with diastolic dysfunction, mild concentric left ventricular hypertrophy. There was also a large calcified mass on the left coronary cusp suggestive of healed vegetation. Lifestyle modificat ion was emphasized. His LFTs have improved. His total bilirubin on admission was 2.0 and yesterday was 1.0. He was also found to have elevated alpha fetoprotein at 55.9. He was advised to follow up with gastroenterology clinic as outpatient. FINAL DIAGNOSES: 1. Chest discomfort, acute coronary syndrome ruled out. 2. Negative Cardiolite stress test. 3. Hypertension with hypertensive heart disease. 4. Symptomatic cholelithiasis status post laparoscopic cholecystectomy. 5. Elevated CK on admission. 6. Abnormal liver function tests, multifactorial. 7. Chronic hepatitis C. 8. Degenerative joint disease. 9. Chronic kidney disease stage 2. 10. Chronic thrombocytopenia, probably secondary to underlying cirrhosis. 11. Cocaine abuse. 12. Urinary retention, resolved. Plan of care was discussed with the patient in detail. He stated understanding. Total time coordinating the discharge of this patient was 36 minutes.
== END 2018-02-21 15:29 | disposition home or self-care (01) | DRG 419 ==
LOC: ERS 05:25 → 2NO 10:41 → SURG A 02-18 19:18
PROVIDERS: ADMIT Internal Medicine; ATTEND Internal Medicine
PROC: 0FT44ZZ Resection of Gallbladder, Percutaneous Endoscopic Approach (ICD-10-PCS; principal; 2018-02-17)
DX: K80.00 Calculus of gallbladder with acute cholecystitis without obstruction (principal); F14.10 Cocaine abuse, uncomplicated; Z91.19 Patient's noncompliance with other medical treatment and regimen; F17.210 Nicotine dependence, cigarettes, uncomplicated; K73.9 Chronic hepatitis, unspecified; Z98.1 Arthrodesis status; F32.9 Major depressive disorder, single episode, unspecified; F41.9 Anxiety disorder, unspecified; M19.90 Unspecified osteoarthritis, unspecified site; I12.9 Hypertensive chronic kidney disease with stage 1 through stage 4 chronic kidney disease, or unspecified chronic kidney disease; N18.2 Chronic kidney disease, stage 2 (mild); D69.6 Thrombocytopenia, unspecified; I13.10 Hypertensive heart and chronic kidney disease without heart failure, with stage 1 through stage 4 chronic kidney disease, or unspecified chronic kidney disease; R33.9 Retention of urine, unspecified
CPT/HCPCS: 36415; 71045; 71275; 76705; 78452; 80048; 80053; 80076; 80306; 80307; 82105; 82553; 83690; 83735; 83880; 84484; 85025; 85610; 85730; 86850; 86900; 86901; 88304; 93005; 93017; 93306; 94760; 96372; A9500; C9113; J0153; J1170; J1885; J2001; J2405; J2704; J3010; J3370

== ENCOUNTER 2019-02-18 05:47 | Emergency (ER) | payer SELFPAY ==
[2019-02-18] MEDS ORDERED: Ketorolac Tromethamine 60 MG/2 ML VIAL ONE (06:01)
== END 2019-02-18 06:28 | disposition home or self-care (01) ==
LOC: ERS 05:47
DX: G89.29 Other chronic pain (principal); M25.562 Pain in left knee; M25.561 Pain in right knee; I10 Essential (primary) hypertension; M19.90 Unspecified osteoarthritis, unspecified site
CPT/HCPCS: 96372; 99283; J1885

== ENCOUNTER 2021-02-16 21:07 | Inpatient (IN) | payer SELFPAY ==
[2021-02-16] MEDS ORDERED: Adenosine 6 MG/2 ML VIAL ONE (21:23)
[2021-02-16] MEDS ORDERED: Furosemide 40 MG/4 ML VIAL ONE (21:43)
[2021-02-16] MEDS ORDERED: Midazolam HCl 5 mg/ml Vial ONE (21:50)
[2021-02-16] MEDS ORDERED: Nitroglycerin 2% Ointment 1 INCH/1 GM Packet ONE (21:54)
[2021-02-16] MEDS ORDERED: Diltiazem 125 MG/25 ML ONE (21:57)
[2021-02-16 22:00] LABS: ALT (SGPT) 87 U/L (8-55); AST (SGOT) 95 U/L (5-34); Albumin 2.8 g/dL (3.5-5.0); Alkaline Phosphatase 136 U/L (40-110); Anion Gap 11 mmol/L (10-20); BUN (Urea Nitrogen) 15 mg/dL (8.4-25.7); Bilirubin, Total 2.2 mg/dL (0.2-1.2); Calc. Creatinine Clearance 0 mL/min (70-130); Calcium 8.3 mg/dL (7.8-10.44); Carbon Dioxide 22 mmol/L (22-29); Chloride 109 mmol/L (98-107); Globulin 4.7 g/dL (2.4-3.5); Glucose 94 mg/dL (70-105); Potassium 4.5 mmol/L (3.5-5.1); Protein, Total 7.5 g/dL (6.0-8.3); Sodium 137 mmol/L (136-145)
[2021-02-16 22:06] LABS: #Basophils 0.1 thou/uL (0.0-0.2); #Eosinphils 0.4 thou/uL (0.0-0.7); #Lymphocytes 2.4 thou/uL (1.20-3.40); #Monocytes 1.1 thou/uL (0.11-0.59); #Neutrophils 4.7 thou/uL (1.40-6.50); %Eosinophils 4.3 % (0.0-10.0); %Lymphocytes 27.8 % (21.0-51.0); %Monocytes 12.3 % (0.0-10.0); %Neutrophils 54.6 % (42.0-75.0); Hemoglobin 15.1 g/dL (14.0-18.0); MDiff Complete? YES; Macrocytosis MODERATE=16-30 cells (100X) (0-5/hpf); Mean Corpuscular HGB CONC 32.2 g/dL (32.0-36.0); Mean Corpuscular Hemoglobin 35.3 pg (27.0-31.0); Mean Platelet Volume 10.6 fL (7.4-10.4); Platelet Count 73 thou/uL (130-400); Platelet Morphology Comment Appears Decreased; RBC Distribution Width 14.2 % (11.5-14.5); Red Blood Cell (RBC) Count 4.29 mill/uL (4.70-6.10); White Blood Cell (WBC) Count 8.5 thou/uL (4.8-10.8)
[2021-02-17] MEDS ORDERED: Acetaminophen 650 MG Suppository PR PRN (00:39)
[2021-02-17] MEDS ORDERED: Ondansetron PF 4 MG/2 ML Vial IVP PRN (00:39)
[2021-02-17] MEDS ORDERED: Ondansetron ODT 4 MG TAB PO PRN (00:39)
[2021-02-17] MEDS ORDERED: Acetaminophen 325 MG TAB PO PRN (00:39)
[2021-02-17 01:53] LABS: SARS-CoV-2 NAA Rapid Test Not Detected (NotDetected)
[2021-02-17 02:11] VITALS: BMI 35.8
[2021-02-17 02:51] LABS: #Basophils 0.1 thou/uL (0.0-0.2); #Eosinphils 0.3 thou/uL (0.0-0.7); #Lymphocytes 1.8 thou/uL (1.20-3.40); #Monocytes 0.8 thou/uL (0.11-0.59); #Neutrophils 4.1 thou/uL (1.40-6.50); %Basophils 0.9 % (0.0-1.0); %Eosinophils 3.9 % (0.0-10.0); %Lymphocytes 25.5 % (21.0-51.0); %Monocytes 11.2 % (0.0-10.0); %Neutrophils 58.6 % (42.0-75.0); Hemoglobin 13.8 g/dL (14.0-18.0); Mean Corpuscular Hemoglobin 35.4 pg (27.0-31.0); Mean Platelet Volume 10.5 fL (7.4-10.4); Platelet Count 70 thou/uL (130-400); RBC Distribution Width 14.2 % (11.5-14.5)
[2021-02-17] MEDS ORDERED: Diltiazem HCl 125 MG, Admixture Fee 1 EACH in Sodium Chloride 0.9% 100 ML IVPB SCH (03:00)
[2021-02-17 03:10] LABS: Troponin I 0.053 ng/mL (< 0.028)
[2021-02-17 03:26] LABS: Anion Gap 10 mmol/L (10-20); BUN (Urea Nitrogen) 15 mg/dL (8.4-25.7); Calc. Creatinine Clearance 104 mL/min (70-130); Calcium 8.1 mg/dL (7.8-10.44); Carbon Dioxide 24 mmol/L (22-29); Chloride 108 mmol/L (98-107); Glucose 154 mg/dL (70-105); Potassium 3.8 mmol/L (3.5-5.1); Sodium 138 mmol/L (136-145)
[2021-02-17 08:03] LABS: Troponin I 0.077 ng/mL (< 0.028)
[2021-02-17] MEDS ORDERED: Calcium Carbonate 500 MG ChewTAB PO PRN (08:20)
[2021-02-17] MEDS ORDERED: GUAIFENESIN SF SOLN 200 MG/10 ML UDCUP PO PRN (08:20)
[2021-02-17] MEDS ORDERED: Senokot S 8.6-50 MG TAB PO PRN (08:20)
[2021-02-17] MEDS ORDERED: Artificial Tear Sol 15 ML BOT EA EYE PRN (08:20)
[2021-02-17] MEDS ORDERED: Zolpidem Tartrate 5 MG TAB PO PRN (08:20)
[2021-02-17] MEDS ORDERED: Loratadine 10 MG TAB PO PRN (08:20)
[2021-02-17] MEDS ORDERED: hydrALAZINE 20 MG/ML VIAL SLOW IVP PRN (08:20)
[2021-02-17] MEDS ORDERED: HYDROcodone/Acetaminophen 5/325 mg Tablet PO PRN (08:20)
[2021-02-17] MEDS ORDERED: Bisacodyl 5 MG TAB PO PRN (08:20)
[2021-02-17] MEDS ORDERED: Loperamide HCl 2 MG CAP PO PRN (08:20)
[2021-02-17] MEDS ORDERED: Sodium Chloride 0.65% Nasal 44 ML BOT EA NARE PRN (08:20)
[2021-02-17] MEDS ORDERED: Hydrocerin (Eucerin) Cream 120 gm Jar TOP PRN (08:20)
[2021-02-17] MEDS: Thiamine 100 MG TAB PO SCH (09:19)
[2021-02-17] MEDS: Furosemide 40 MG/4 ML VIAL SLOW IVP SCH (09:19)
[2021-02-17] MEDS: Folic Acid 1 MG TAB PO SCH (09:19)
[2021-02-17] MEDS: Cyanocobalamin (Vitamin B-12) 1,000 MCG TAB PO SCH (09:19)
[2021-02-17] MEDS: Multivitamin W/ Minerals 1 TAB PO SCH (09:19)
[2021-02-17] MEDS: Cepastat Lozenges 1 LOZ PO PRN ×2 (21:11→23:47)
[2021-02-17] MEDS: Levalbuterol HCl 0.63 MG/3 ML NEB NEB PRN (23:44)
[2021-02-18 00:47] LABS: Amphetamine Not Detected (NotDetected); Barbiturates Screen Not Detected (NotDetected); Benzodiazepine Screen Not Detected (NotDetected); Cocaine Metabolite Screen Detected (NotDetected); Methadone Not Detected (NotDetected); Methamphetamine Not Detected (NotDetected); Opiate Screen Not Detected (NotDetected); Oxycodone Screen Not Detected (NotDetected); Phencyclidine (PCP) Not Detected (NotDetected); THC/Cannabinoid Screen Not Detected (NotDetected); Tricyclic Screen Not Detected (NotDetected)
[2021-02-18] MEDS ORDERED: Furosemide 20 MG/2 ML VIAL SLOW IVP SCH (02:15)
[2021-02-18 03:07] LABS: Troponin I 0.051 ng/mL (< 0.028)
[2021-02-18 03:13] LABS: ALT (SGPT) 76 U/L (8-55); AST (SGOT) 87 U/L (5-34); Albumin 2.4 g/dL (3.5-5.0); Alkaline Phosphatase 126 U/L (40-110); Anion Gap 10 mmol/L (10-20); BUN (Urea Nitrogen) 15 mg/dL (8.4-25.7); Bilirubin, Total 1.5 mg/dL (0.2-1.2); Calc. Creatinine Clearance 122 mL/min (70-130); Carbon Dioxide 23 mmol/L (22-29); Chloride 108 mmol/L (98-107); Globulin 4.2 g/dL (2.4-3.5); Glucose 119 mg/dL (70-105); Magnesium 1.5 mg/dL (1.6-2.6); Phosphorus 3.9 mg/dL (2.3-4.7); Potassium 3.7 mmol/L (3.5-5.1); Protein, Total 6.6 g/dL (6.0-8.3); Sodium 137 mmol/L (136-145)
[2021-02-18 03:31] LABS: Mean Corpuscular HGB CONC 32.5 g/dL (32.0-36.0); Mean Corpuscular Hemoglobin 35.9 pg (27.0-31.0); Mean Platelet Volume 10.7 fL (7.4-10.4); Platelet Count 51 thou/uL (130-400); RBC Distribution Width 14.1 % (11.5-14.5); Red Blood Cell (RBC) Count 3.63 mill/uL (4.70-6.10); White Blood Cell (WBC) Count 5.9 thou/uL (4.8-10.8)
[2021-02-18 04:38] LABS: Macrocytosis SLIGHT = 6-15 cells (100X) (0-5/hpf); Platelet Morphology Comment Appears Decreased
[2021-02-18 04:39] LABS: #Eosinphils 0.2 thou/uL (0.0-0.7); #Lymphocytes 1.4 thou/uL (1.20-3.40); #Monocytes 0.8 thou/uL (0.11-0.59); #Neutrophils 3.5 thou/uL (1.40-6.50); %Basophils 0.2 % (0.0-1.0); %Eosinophils 3.7 % (0.0-10.0); %Lymphocytes 23.3 % (21.0-51.0); %Monocytes 13.5 % (0.0-10.0); %Neutrophils 59.3 % (42.0-75.0)
[2021-02-18] MEDS: Magnesium 2 GM/50 ML 2 GM in Premix Bag 1 BAG IVPB SCH ×2 (04:51→05:12)
[2021-02-18] MEDS ORDERED: Magnesium Sulfate 2 GM in Sodium Chloride 0.9% 100 ML IVPB SCH (05:30)
[2021-02-18] MEDS ORDERED: Furosemide 40 MG/4 ML VIAL SLOW IVP ONE (08:50)
[2021-02-18] MEDS: Multivitamin W/ Minerals 1 TAB PO SCH (09:38)
[2021-02-18] MEDS: Cyanocobalamin (Vitamin B-12) 1,000 MCG TAB PO SCH (09:38)
[2021-02-18] MEDS: Folic Acid 1 MG TAB PO SCH (09:38)
[2021-02-18] MEDS: Furosemide 40 MG/4 ML VIAL SLOW IVP SCH (09:38)
[2021-02-18] MEDS: Thiamine 100 MG TAB PO SCH (09:40)
[2021-02-18] MEDS: Levalbuterol HCl 0.63 MG/3 ML NEB NEB PRN (10:44)
[2021-02-18] MEDS ORDERED: Diltiazem HCl 125 MG, Admixture Fee 1 EACH in Sodium Chloride 0.9% 100 ML IVPB SCH (15:30)
[2021-02-18] MEDS ORDERED: Furosemide 40 MG/4 ML VIAL SLOW IVP SCH (18:15)
[2021-02-18] MEDS: Flecainide 50 MG TAB PO SCH (20:36)
[2021-02-18] MEDS ORDERED: Enoxaparin Sodium 40 MG/0.4 ML SYRINGE SC SCH (21:00)
[2021-02-19] MEDS: Furosemide 40 MG/4 ML VIAL SLOW IVP SCH ×2 (05:53→14:06)
[2021-02-19] MEDS: Thiamine 100 MG TAB PO SCH (08:41)
[2021-02-19] MEDS: Folic Acid 1 MG TAB PO SCH (08:42)
[2021-02-19] MEDS: Multivitamin W/ Minerals 1 TAB PO SCH (08:42)
[2021-02-19] MEDS: Cyanocobalamin (Vitamin B-12) 1,000 MCG TAB PO SCH (08:42)
[2021-02-19] MEDS: Flecainide 50 MG TAB PO SCH ×2 (08:42→20:37)
[2021-02-20] MEDS: Furosemide 40 MG/4 ML VIAL SLOW IVP SCH ×2 (05:44→15:12)
[2021-02-20] MEDS: Thiamine 100 MG TAB PO SCH (08:40)
[2021-02-20] MEDS: Flecainide 50 MG TAB PO SCH (08:41)
[2021-02-20] MEDS: Cyanocobalamin (Vitamin B-12) 1,000 MCG TAB PO SCH (08:41)
[2021-02-20] MEDS: Multivitamin W/ Minerals 1 TAB PO SCH (08:42)
[2021-02-20] MEDS: Folic Acid 1 MG TAB PO SCH (08:42)
[2021-02-20 10:12] LABS: ALT (SGPT) 75 U/L (8-55); AST (SGOT) 85 U/L (5-34); Albumin 2.5 g/dL (3.5-5.0); Alkaline Phosphatase 135 U/L (40-110); Anion Gap 10 mmol/L (10-20); BUN (Urea Nitrogen) 18 mg/dL (8.4-25.7); Bilirubin, Total 1.4 mg/dL (0.2-1.2); Calc. Creatinine Clearance 104 mL/min (70-130); Carbon Dioxide 27 mmol/L (22-29); Chloride 105 mmol/L (98-107); Globulin 4.4 g/dL (2.4-3.5); Glucose 121 mg/dL (70-105); Potassium 3.7 mmol/L (3.5-5.1); Protein, Total 6.9 g/dL (6.0-8.3); Sodium 138 mmol/L (136-145)
[2021-02-20 16:30] VITALS: BP 134/81; TEMP 98.5
== END 2021-02-20 17:50 | disposition home or self-care (01) | DRG 280 ==
LOC: ERS 21:07 → IMCU/EMU 23:40 → 2NO 02-17 17:50
PROVIDERS: ADMIT Student in an Organized Health Care Education/Training Program; ATTEND Internal Medicine
DX: I11.0 Hypertensive heart disease with heart failure (principal); J96.01 Acute respiratory failure with hypoxia; I21.A1 Myocardial infarction type 2; I50.33 Acute on chronic diastolic (congestive) heart failure; I47.1 Supraventricular tachycardia; M19.90 Unspecified osteoarthritis, unspecified site; F17.210 Nicotine dependence, cigarettes, uncomplicated; D69.6 Thrombocytopenia, unspecified; Z20.822 Contact with and (suspected) exposure to COVID-19; I48.91 Unspecified atrial fibrillation; D53.9 Nutritional anemia, unspecified; E66.9 Obesity, unspecified; B18.2 Chronic viral hepatitis C; F14.10 Cocaine abuse, uncomplicated; Z88.8 Allergy status to other drugs, medicaments and biological substances; Z91.013 Allergy to seafood; Z90.49 Acquired absence of other specified parts of digestive tract; Z68.34 Body mass index [BMI] 34.0-34.9, adult
CPT/HCPCS: 36415; 71045; 80048; 80053; 80306; 82553; 83735; 83880; 84100; 84484; 85025; 93005; 93306; 94640; 96365; 96366; 96375; 96376; 97139; J0153; J1940; J2250; J3475; J3490; J7614; J7620; U0002

== ENCOUNTER 2022-05-13 12:11 | Inpatient (IN) | payer SELFPAY ==
[2022-05-13] MEDS ORDERED: Adenosine 6 MG/2 ML VIAL ONE (12:24)
[2022-05-13] MEDS ORDERED: Metoprolol Tartrate 5 MG/5 ML VIAL ONE (12:24)
[2022-05-13] MEDS ORDERED: Diltiazem 125 MG/25 ML ONE (12:33)
[2022-05-13 12:47] LABS: #Eosinphils 0.2 thou/uL (0.0-0.7); #Lymphocytes 1.6 thou/uL (1.20-3.40); #Monocytes 1.6 thou/uL (0.11-0.59); #Neutrophils 8.3 thou/uL (1.40-6.50); %Basophils 0.2 % (0.0-1.0); %Eosinophils 1.6 % (0.0-10.0); %Monocytes 13.4 % (0.0-10.0); %Neutrophils 70.9 % (42.0-75.0); Mean Corpuscular HGB CONC 31.7 g/dL (32.0-36.0); Mean Corpuscular Hemoglobin 35.6 pg (27.0-31.0); Mean Platelet Volume 9.2 fL (7.4-10.4); Platelet Count 134 10x3/uL (130-400); RBC Distribution Width 14.6 % (11.5-14.5); Red Blood Cell (RBC) Count 3.92 mill/uL (4.70-6.10); White Blood Cell (WBC) Count 11.7 10x3/uL (4.8-10.8)
[2022-05-13 13:03] LABS: ALT (SGPT) 55 U/L (8-55); AST (SGOT) 113 U/L (5-34); Albumin 2.3 g/dL (3.5-5.0); Alkaline Phosphatase 157 U/L (40-110); Anion Gap 9 mmol/L (10-20); BUN (Urea Nitrogen) 16 mg/dL (8.4-25.7); Bilirubin, Total 4.5 mg/dL (0.2-1.2); Calc. Creatinine Clearance 0 mL/min (70-130); Calcium 7.9 mg/dL (7.8-10.44); Carbon Dioxide 26 mmol/L (22-29); Chloride 102 mmol/L (98-107); Estimated GFR 90; Globulin 5.6 g/dL (2.4-3.5); Glucose 110 mg/dL (70-105); Lipase 57 U/L (8-78); Potassium 3.9 mmol/L (3.5-5.1); Protein, Total 7.9 g/dL (6.0-8.3); Sodium 133 mmol/L (136-145)
[2022-05-13 13:08] LABS: MDiff Complete? YES; Macrocytosis SLIGHT = 6-15 cells (100X) (0-5/hpf); Platelet Morphology Comment Appears Adequate
[2022-05-13] MEDS ORDERED: Aspirin 325 MG TAB ONE (14:31)
[2022-05-13] MEDS ORDERED: Acetaminophen 325 MG TAB PO PRN (15:35)
[2022-05-13] MEDS ORDERED: Ondansetron ODT 4 MG TAB PO PRN (15:35)
[2022-05-13 16:42] LABS: Troponin I 0.013 ng/mL (< 0.028)
[2022-05-13 18:23] VITALS: BMI 32.5
[2022-05-13 19:55] LABS: Troponin I 0.011 ng/mL (< 0.028)
[2022-05-13] MEDS: Famotidine 20 MG TAB PO SCH (20:22)
[2022-05-14 05:22] LABS: Hemoglobin 12.2 g/dL (14.0-18.0); Mean Corpuscular HGB CONC 31.5 g/dL (32.0-36.0); Mean Corpuscular Hemoglobin 35.7 pg (27.0-31.0); Mean Platelet Volume 9.2 fL (7.4-10.4); Platelet Count 114 10x3/uL (130-400); RBC Distribution Width 14.8 % (11.5-14.5); Red Blood Cell (RBC) Count 3.42 mill/uL (4.70-6.10); White Blood Cell (WBC) Count 9.6 10x3/uL (4.8-10.8)
[2022-05-14 05:38] LABS: Anion Gap 9 mmol/L (10-20); BUN (Urea Nitrogen) 21 mg/dL (8.4-25.7); Calc. Creatinine Clearance 113 mL/min (70-130); Calcium 7.6 mg/dL (7.8-10.44); Carbon Dioxide 22 mmol/L (22-29); Chloride 104 mmol/L (98-107); Estimated GFR 88; Glucose 97 mg/dL (70-105); Potassium 4.1 mmol/L (3.5-5.1); Sodium 131 mmol/L (136-145)
[2022-05-14 05:58] LABS: Anisocytosis SLIGHT = 6-15 cells (100X) (0-5/hpf); Band 1 % (5-11); Hypochromia SLIGHT = 6-15 cells (100X) (0-5/hpf); Lymphocytes 15 % (21-51); MDiff Complete? YES; Macrocytosis MODERATE=16-30 cells (100X) (0-5/hpf); Metamyelocyte 1 % (0-0); Monocytes 13 % (0-10); Neutrophil 69 % (42-75); Ovalocytes MODERATE= 6-15 cells (100X) (0-1/hpf); Platelet Morphology Comment Appears Decreased; Polychromasia SLIGHT = 2-3 cells (100X) (0-2/hpf); Reactive Lymphocytes 1 % (0-10); Target Cells SLIGHT = 2-5 cells (100X) (0-1/hpf)
[2022-05-14] MEDS ORDERED: Enoxaparin Sodium 40 MG/0.4 ML SYRINGE SC SCH (09:00)
[2022-05-14] MEDS ORDERED: Cyanocobalamin (Vitamin B-12) 1,000 MCG TAB PO SCH (09:00)
[2022-05-14] MEDS ORDERED: Folic Acid 1 MG TAB PO SCH (09:00)
[2022-05-14] MEDS: Famotidine 20 MG TAB PO SCH (09:01)
[2022-05-14 12:15] LABS: Amphetamine Not Detected (NotDetected); Barbiturates Screen Not Detected (NotDetected); Benzodiazepine Screen Not Detected (NotDetected); Cocaine Metabolite Screen Detected (NotDetected); Methadone Not Detected (NotDetected); Methamphetamine Not Detected (NotDetected); Opiate Screen Not Detected (NotDetected); Oxycodone Screen Not Detected (NotDetected); Phencyclidine (PCP) Not Detected (NotDetected); THC/Cannabinoid Screen Not Detected (NotDetected); Tricyclic Screen Not Detected (NotDetected)
[2022-05-14 20:40] VITALS: BP 132/82; TEMP 99.1
== END 2022-05-14 22:15 | disposition home or self-care (01) | DRG 309 ==
LOC: ERS 12:11 → ERHOLD 14:22 → NEURO 17:44
PROVIDERS: ADMIT Student in an Organized Health Care Education/Training Program; ATTEND Emergency Medicine
DX: I47.1 Supraventricular tachycardia (principal); I50.32 Chronic diastolic (congestive) heart failure; I11.0 Hypertensive heart disease with heart failure; E80.6 Other disorders of bilirubin metabolism; K74.60 Unspecified cirrhosis of liver; K76.89 Other specified diseases of liver; E78.5 Hyperlipidemia, unspecified; F10.10 Alcohol abuse, uncomplicated; F14.10 Cocaine abuse, uncomplicated; R74.01 Elevation of levels of liver transaminase levels; Z91.013 Allergy to seafood; Z90.49 Acquired absence of other specified parts of digestive tract; Z91.041 Radiographic dye allergy status; Z98.1 Arthrodesis status; Z79.899 Other long term (current) drug therapy; Z87.891 Personal history of nicotine dependence; Z20.822 Contact with and (suspected) exposure to COVID-19
CPT/HCPCS: 36415; 71045; 76705; 80048; 80053; 80306; 83690; 83880; 84484; 85025; 93005; 94760; J0153; J1650; U0003; U0005